=== PATIENT | female | born 1995 | race Caucasian/White ===

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

== ENCOUNTER → 2017-07-04 | Outpatient (CLI) | payer OTHER ==
--- NOTE | 2017-07-04 08:22 | CT ---
EXAMINATION TYPE: CT brain wo con DATE OF EXAM: 07/04/2017 COMPARISON: Previous study dated 11/07/2015. HISTORY: Patient complains of increased frequency of migraine headaches. Patient has a history of mi graines. CT DLP: 975 mGycm Automated exposure control for dose reduction was used. FINDINGS: Central structures are midline. There is no evidence of hydrocephalus. No acute focal lesio n, mass effect or midline shift is seen. I do not see evidence of intracranial blood. Visualized portions of the paranasal sinuses and mastoids are clear. IMPRESSION: NORMAL CT SCAN OF THE BRAIN.
== END | disposition home or self-care (01) ==
LOC: RADCTMAIN 07:55
PROVIDERS: ATTEND Family Medicine
DX: R51 Headache (principal)
CPT/HCPCS: 70450

== ENCOUNTER → 2017-12-13 | Outpatient (CLI) | payer OTHER ==
--- NOTE | 2017-12-14 09:10 | XR ---
EXAMINATION TYPE: XR humerus LT DATE OF EXAM: 12/13/2017 COMPARISON: NONE HISTORY: Possible foreign body TECHNIQUE: 2 views submitted. FINDINGS: The osseous structures are intact and the joint spaces are preserved. There are 2 separate radiopaqu e density seen along the medial margin of the proximal and distal humerus which may represent foreign body. IMPRESSION: 1. Linear radiopaque densities along the medial margin of the mid diaphysis and distal diaphysis of t he humerus may represent the possible foreign body. Correlate clinically.
== END | disposition home or self-care (01) ==
LOC: RADXRMAIN 16:23
PROVIDERS: ATTEND Midwife
DX: Z30.40 Encounter for surveillance of contraceptives, unspecified (principal); M85.822 Other specified disorders of bone density and structure, left upper arm

== ENCOUNTER 2017-12-24 20:16 | Emergency (ER) | payer OTHER ==
[2017-12-24 20:21] VITALS: BP 125/73; PULSE 105; RESP 20; TEMP 98.2
[2017-12-24] MEDS ORDERED: KETOROLAC 60 MG/2 ML VIAL IM STA (20:27)
[2017-12-24] MEDS ORDERED: ORPHENADRINE 30 MG/ML 2 ML VIAL IM STA (20:27)
--- NOTE | 2017-12-24 20:31 | ED ---
General Adult HPI - General Chief complaint: Back Pain/Injury Stated complaint: Back Pain Time Seen by Provider: 12/24/17 20:22 Source: patient, RN notes reviewed Mode of arrival: wheelchair Limitations: no limitations - History of Present Illness Initial comments: 22 yo female presents to the ER with cc of left sided back pain. Patient states she's had this on and off for the last 3 months. She bent over doing laundry seemed to flare up. Patient states she steps onto her left or right foot a little should the pain up the left side. Patient denies any loss of bowel or bladder function any saddle anesthesia. Patient denies any falls traumas or injuries to increase her discomfort. She denies the use the redness with her discomfort. She was concerned due to her continued pain so she thought that she should be seen. Patient denies any recent fever, chills, shortness of breath, chest pain, abdominal pain, nausea vomiting, numbness or tingling, dysuria or hematuria, constipation or diarrhea, headaches or visual changes, or any other current symptoms. - Related Data Home Medications Medication Instructions Recorded Confirmed Etonogestrel [Nexplanon ( 68 mg SQ [id number] 07/04/15 12/24/17 control implant)] Previous Rx's Medication Instructions Recorded Orphenadrine [Norflex] 100 mg PO Q12H #10 tablet.er 12/24/17 predniSONE 50 mg PO DAILY #5 tab 12/24/17 Allergies Allergy/AdvReac Type Severity Reaction Status Date / Time No Known Allergies Allergy Verified 12/24/17 20:28 Review of Systems ROS Statement: Those systems with pertinent positive or pertinent negative responses have been documented in the HPI. ROS Other: All systems not noted in ROS Statement are negative. Past Medical History Past Medical History: Asthma History of Any Multi-Drug Resistant Organisms: None Reported Past Surgical History: No Surgical Hx Reported Past Psychological History: No Psychological Hx Reported Smoking Status: Never smoker Past Alcohol Use History: Occasional Past Drug Use History: None Reported General Exam Limitations: no limitations General appearance: alert, in no apparent distress ENT exam: Present: normal exam, mucous membranes moist Neck exam: Present: normal inspection. Absent: tenderness, meningismus, lymphadenopathy Respiratory exam: Present: normal lung sounds bilaterally. Absent: respiratory distress, wheezes, rales, rhonchi, stridor Cardiovascular Exam: Present: regular rate, normal rhythm, normal heart sounds. Absent: systolic murmur, diastolic murmur, rubs, gallop, clicks Back exam: Present: normal inspection, full ROM, tenderness (To the left paraspinal region), rash noted, other (Positive straight leg raise on the left) . Absent: muscle spasm Neurological exam: Present: alert, oriented X3 Psychiatric exam: Present: normal affect, normal mood Skin exam: Present: warm, dry, intact, normal color. Absent: rash Course Vital Signs 12/24/17 20:17 Temperature 98.2 F Pulse Rate 105 H Respiratory 20 Rate Blood Pressure 125/73 O2 Sat by Pulse 100 Oximetry Medical Decision Making - Medical Decision Making 22-year-old female presents emergency department with a chief complaint of left sided sciatica. At this time the patient x-ray is reviewed. At this time we discussed most likely a sciatica type pain. We discussed that we will start her on steroids for home. Muscle relaxer. We did discuss using Motrin Tylenol for pain control. We did discuss follow-up with her doctor and all questions. Patient stated that she understood. All questions have been answered. She will be discharged home. - Radiology Data Radiology results: report reviewed, image reviewed Disposition Clinical Impression: Sciatica, left side Disposition: HOME SELF-CARE Condition: Stable Instructions: Sciatica (ED), Lower Back Exercises (ED) Additional Instructions: Please use medication as discussed. Please follow up with family doctor if symptoms have not improved over the next two days. Please return to the emergency room if your symptoms increase or worsen or for any other concerns. Prescriptions: Orphenadrine [Norflex] 100 mg PO Q12H #10 tablet.er predniSONE 50 mg PO DAILY #5 tab Referrals: Vadim Sidhu MD [Primary Care Provider] - 1-2 days Time of Disposition: 20:58
--- NOTE | 2017-12-24 20:56 | XR ---
EXAMINATION TYPE: XR lumbar spine 2 or 3V DATE OF EXAM: 12/24/2017 COMPARISON: NONE HISTORY: Back pain TECHNIQUE: 3 views FINDINGS: Lumbar vertebra have fairly normal spacing and alignment. Posterior elements are intact. Sa croiliac joints appear normal. There is no compression fracture. IMPRESSION: Negative lumbar spine exam.
== END 2017-12-24 21:04 | disposition home or self-care (01) ==
LOC: EC 20:16
DX: M54.32 Sciatica, left side (principal); Z79.3 Long term (current) use of hormonal contraceptives
CPT/HCPCS: 72100; 99283; 96372 ×2; J2360; J1885

== ENCOUNTER 2018-06-26 20:40 | Emergency (ER) | payer OTHER ==
[2018-06-26 21:04] VITALS: BP 128/68; PULSE 73; RESP 16; TEMP 97.3
--- NOTE | 2018-06-26 21:20 | ED ---
ENT HPI - General Chief complaint: ENT Stated complaint: Throat Pain Time Seen by Provider: 06/26/18 21:08 Source: patient, RN notes reviewed Mode of arrival: ambulatory Limitations: no limitations - History of Present Illness Initial comments: This is a 22-year-old female who presents to the emergency department with chief complaint of sore throat. Patient reports a left-sided sore throat since Monday. Patient states that the pain has progressed today. She also reports left ear pain. Denies cough or runny nose. Denies fevers or chills. Denies chest pain or shortness of breath, abdominal pain, nausea or vomiting, body aches. - Related Data Home Medications Medication Instructions Recorded Confirmed Etonogestrel [Nexplanon ( 68 mg SQ [id number] 07/04/15 12/24/17 control implant)] Previous Rx's Medication Instructions Recorded Orphenadrine [Norflex] 100 mg PO Q12H #10 tablet.er 12/24/17 predniSONE 50 mg PO DAILY #5 tab 12/24/17 Allergies Allergy/AdvReac Type Severity Reaction Status Date / Time No Known Allergies Allergy Verified 12/24/17 20:28 Review of Systems ROS Statement: Those systems with pertinent positive or pertinent negative responses have been documented in the HPI. ROS Other: All systems not noted in ROS Statement are negative. Past Medical History Past Medical History: Asthma History of Any Multi-Drug Resistant Organisms: None Reported Past Surgical History: No Surgical Hx Reported Additional Past Surgical History / Comment(s): Nexplan removal Past Psychological History: No Psychological Hx Reported Smoking Status: Never smoker Past Alcohol Use History: Occasional Past Drug Use History: None Reported General Exam - General Exam Comments Initial Comments: General: Awake and alert, well-developed; in no apparent distress. HEENT: Head atraumatic, normocephalic. Pupils are equal, round and reactive to light. Extraocular movements intact. Oropharynx left-sided erythema of the palatoglossal arch with plaque-like ulcers. No tonsillar enlargement or exudates. Neck: Supple. Normal ROM. Cardiovascular: Regular rate and rhythm. No murmurs, rubs or gallops. Chest symmetrical. Respiratory: Lungs clear to auscultation bilaterally. No wheezes, rales or rhonchi. Normal respiratory effort with no use of accessory muscles. Musculoskeletal: Normal ROM, no tenderness bilateral upper and lower extremities. Ambulating normally. Skin: [place], warm and dry without rashes or lesions. Neurological: Alert and oriented x3. CN II-XII grossly intact. Speech is fluent and answers are appropriate. No focal neuro deficits. Psychiatric: Normal mood and affect. No overt signs of depression or anxiety noted. Limitations: no limitations Course Vital Signs 06/26/18 20:59 Temperature 97.3 F L Pulse Rate 73 Respiratory 16 Rate Blood Pressure 128/68 O2 Sat by Pulse 100 Oximetry Medical Decision Making - Medical Decision Making This is a 22-year-old female who presents to the emergency department with chief complaint of sore throat. Patient reports only pain to the left side of her throat. On physical examination, there is erythema and plaque-like ulcers noted to the left side patient's oropharynx. Rapid strep is negative. Patient denies fevers or chills. Likely suffering from a viral pharyngitis. Recommended Tylenol and Motrin for pain relief. Patient's vital signs are stable and she is in no acute distress. She will be discharged home at this time. She is in agreement and voices understanding. All questions were answered. - Lab Data Lab Results 06/26/18 Range/Units 21:16 Group A Strep Rapid Negative (Negative) Disposition Clinical Impression: Acute viral pharyngitis Disposition: HOME SELF-CARE Condition: Good Instructions: Pharyngitis (ED) Additional Instructions: Please follow up with primary care provider within 1-2 days. Return to emergency department if symptoms should worsen or any concerns arise. Is patient prescribed a controlled substance at d/c from ED?: No Referrals: Alannah Rodriguez MD [Primary Care Provider] - 1-2 days Time of Disposition: 21:37
== END 2018-06-26 21:41 | disposition home or self-care (01) ==
LOC: EC 20:40
DX: J02.9 Acute pharyngitis, unspecified (principal); H92.02 Otalgia, left ear; Z79.3 Long term (current) use of hormonal contraceptives
CPT/HCPCS: 87081; 87430; 99283

== ENCOUNTER 2019-10-24 01:09 | Emergency (ER) | payer OTHER ==
[2019-10-24 01:20] VITALS: RESP 18; TEMP 98
[2019-10-24] MEDS ORDERED: ONDANSETRON ODT 4 MG TAB PO STA (01:36)
--- NOTE | 2019-10-24 01:44 | ED ---
Alcohol HPI - General Chief Complaint: Alcohol Stated Complaint: ETOH,Anxiety Time Seen by Provider: 10/24/19 01:28 Source: patient Mode of arrival: ambulatory - History of Present Illness Initial Comments: Patient is a 24-year-old female presenting to the emergency department with her mother for alcohol intoxication. Patient had been out drinking for her birthday today and then became sad because her cousin past week a few months ago who also shares the same birthday. Patient began crying and grandmother took her to the ER. In triage, patient started vomiting. Mother is not sure why grandma took her to the ER. Patient denies having homicidal or suicidal thoughts. Patient denies pain anywhere. Patient's only complaint is nausea and vomiting secondary to alcohol. Patient has no pertinent past medical history. There are no other complaints at this time. - Related Data Home Medications Medication Instructions Recorded Confirmed Etonogestrel [Nexplanon ( 68 mg SQ [id number] 07/04/15 12/24/17 control implant)] Previous Rx's Medication Instructions Recorded Orphenadrine [Norflex] 100 mg PO Q12H #10 tablet.er 12/24/17 predniSONE 50 mg PO DAILY #5 tab 12/24/17 Allergies Allergy/AdvReac Type Severity Reaction Status Date / Time No Known Allergies Allergy Verified 10/24/19 01:20 Review of Systems ROS Statement: Those systems with pertinent positive or pertinent negative responses have been documented in the HPI. ROS Other: All systems not noted in ROS Statement are negative. Past Medical History Past Medical History: Asthma History of Any Multi-Drug Resistant Organisms: None Reported Past Surgical History: No Surgical Hx Reported Additional Past Surgical History / Comment(s): Nexplan removal Past Psychological History: No Psychological Hx Reported Smoking Status: Never smoker Past Alcohol Use History: Occasional Past Drug Use History: None Reported General Exam - General Exam Comments Initial Comments: GENERAL: Patient appears intoxicated, in no acute distress. Patient is nauseous and vomiting. HEAD: Atraumatic, normocephalic. EYES: Pupils equal round and reactive to light, extraocular movements intact, sclera anicteric, conjunctiva are normal. ENT: TMs normal, nares patent, oropharynx clear without exudates. Moist mucous membranes. NECK: Normal range of motion, supple without lymphadenopathy or JVD. LUNGS: Breath sounds clear to auscultation bilaterally and equal. No wheezes rales or rhonchi. HEART: Regular rate and rhythm without murmurs, rubs or gallops. ABDOMEN: Soft, nontender, normoactive bowel sounds. No guarding, no rebound. No masses appreciated. : Deferred EXTREMITIES: Normal range of motion, no pitting or edema. No clubbing or cyanosis. PSYCH: Intoxicated, sad. SKIN: Warm, Dry, normal turgor, no rashes or lesions noted. Course Vital Signs 10/24/19 10/24/19 01:17 01:46 Temperature 98.0 F Pulse Rate 137 H 85 Respiratory 18 18 Rate Blood Pressure 122/81 109/66 O2 Sat by Pulse 95 96 Oximetry Medical Decision Making - Medical Decision Making Patient is a 24-year-old female presenting with acute alcohol intoxication as well as nauseous GI and vomiting. Patient denies suicidal or homicidal thoughts. Exam is unremarkable other than vomiting. Vitals are stable. Patient is here with a sober mother and mother will drive patient home. Patient was given Zofran for her nausea. Patient stable for discharge at this time. Return parameters were discussed with the patient and the mother and they both verbalized understanding. Case discussed with Dr. Moore. Disposition Clinical Impression: Alcoholic intoxication, Nausea & vomiting Disposition: HOME SELF-CARE Condition: Stable Instructions (If sedation given, give patient instructions): Alcohol Intoxication (ED) Additional Instructions: Please return to the Emergency Department if symptoms worsen or any other concern. Increase fluid intake Is patient prescribed a controlled substance at d/c from ED?: No Referrals: Alannah Rodriguez MD [Primary Care Provider] - 1-2 days
[2019-10-24 01:47] VITALS: BP 109/66; PULSE 85
== END 2019-10-24 01:57 | disposition home or self-care (01) ==
LOC: EC 01:09
DX: F10.129 Alcohol abuse with intoxication, unspecified (principal)
CPT/HCPCS: 99283

== ENCOUNTER 2021-07-02 01:58 | Emergency (ER) | payer OTHER ==
[2021-07-02 02:10] VITALS: BP 110/68; PULSE 88; RESP 22; TEMP 98.5
[2021-07-02] MEDS ORDERED: MAG HYDROX/AL HYDROX/SIMETH 30 ML, HYOSCYAMINE ELIXIR 10 ML, LIDOCAINE VISCOUS 2% 10 ML PO STA ×3 (03:08)
--- NOTE | 2021-07-02 03:14 | ED ---
Abdominal Pain HPI - General Chief Complaint: Abdominal Pain Stated Complaint: Abd Pain Time Seen by Provider: 07/02/21 02:56 Source: patient, family Mode of arrival: ambulatory Limitations: no limitations - History of Present Illness Initial Comments: This patient is 25-year-old woman with history of and May, who presents with upper abdominal pain. She has been having approximately weekly episodes of upper abdominal pain going back for about a month. She states she'll have hours of aching pain that sometimes resolves if she goes to sleep. The pains always come on at night. Patient states she had eaten a steak and potatoes this evening (6pm). Pain started around midnight. MD Complaint: abdominal pain -: hour(s) Location: RUQ, epigastric Radiation: back Severity: severe Quality: aching Consistency: constant Improves With: nothing Worsens With: nothing Associated Symptoms: nausea, vomiting - Related Data LMP (females 10-50): 3 weeks Home Medications Medication Instructions Recorded Confirmed Etonogestrel [Nexplanon ( 68 mg SQ [id number] 07/04/15 12/24/17 control implant)] Previous Rx's Medication Instructions Recorded Orphenadrine [Norflex] 100 mg PO Q12H #10 tablet.er 12/24/17 predniSONE 50 mg PO DAILY #5 tab 12/24/17 Dicyclomine [Bentyl] 20 mg PO QID #15 tablet 07/02/21 Famotidine [Pepcid] 20 mg PO BID #14 tablet 07/02/21 Allergies Allergy/AdvReac Type Severity Reaction Status Date / Time No Known Allergies Allergy Verified 07/02/21 02:09 Review of Systems ROS Statement: Those systems with pertinent positive or pertinent negative responses have been documented in the HPI. ROS Other: All systems not noted in ROS Statement are negative. Constitutional: Denies: fever, chills Respiratory: Denies: cough, dyspnea Cardiovascular: Denies: chest pain, palpitations Gastrointestinal: Reports: abdominal pain, nausea. Denies: vomiting, diarrhea, constipation, hematemesis, melena Genitourinary: Denies: dysuria, frequency, hematuria, abnormal menses Musculoskeletal: Denies: back pain Skin: Denies: rash Neurological: Denies: headache, weakness, numbness Past Medical History Past Medical History: Asthma History of Any Multi-Drug Resistant Organisms: None Reported Past Surgical History: No Surgical Hx Reported Additional Past Surgical History / Comment(s): Nexplan removal Past Psychological History: No Psychological Hx Reported Smoking Status: Never smoker Past Alcohol Use History: Occasional Past Drug Use History: None Reported General Exam Limitations: no limitations General appearance: alert, in no apparent distress Head exam: Present: atraumatic, normocephalic Eye exam: Present: normal appearance. Absent: scleral icterus, conjunctival injection Respiratory exam: Present: normal lung sounds bilaterally. Absent: respiratory distress, wheezes, rales, rhonchi, stridor Cardiovascular Exam: Present: regular rate, normal rhythm, normal heart sounds. Absent: systolic murmur, diastolic murmur, rubs, gallop GI/Abdominal exam: Present: soft, tenderness, normal bowel sounds. Absent: distended, guarding, rebound, rigid, mass, pulsatile mass, hernia Extremities exam: Present: normal inspection, normal capillary refill. Absent: pedal edema, calf tenderness Back exam: Present: normal inspection. Absent: CVA tenderness (R), CVA tenderness (L) Neurological exam: Present: alert Skin exam: Present: warm, dry, intact, normal color. Absent: rash Course Vital Signs 07/02/21 02:05 Temperature 98.5 F Pulse Rate 88 Respiratory 22 Rate Blood Pressure 110/68 O2 Sat by Pulse 99 Oximetry Medical Decision Making - Medical Decision Making This patient is 25-year-old woman with intermittent abdominal pains. She does have some mild right upper quadrant tenderness on arrival. Discussed that had wanted to have an ultrasound of right upper quadrant, but that ultrasound is not arrive until 7 AM. Offered to keep patient here until ultrasound arrives but she would like to go one schedule the ultrasound as outpatient. She is feeling much better at present. Discussed appropriate further care and follow-up as well as return parameters. - Lab Data Result diagrams: 07/02/21 03:19 07/02/21 03:19 Lab Results 07/02/21 07/02/21 07/02/21 Range/Units 03:19 03:19 03:19 WBC 11.1 H (3.8-10.6) k/uL RBC 4.84 (3.80-5.40) m/uL Hgb 13.2 (11.4-16.0) gm/dL Hct 39.6 (34.0-46.0) % MCV 81.9 (80.0-100.0) fL MCH 27.3 (25.0-35.0) pg MCHC 33.3 (31.0-37.0) g/dL RDW 13.3 (11.5-15.5) % Plt Count 351 (150-450) k/uL MPV 7.8 Neutrophils % 78 % Lymphocytes % 16 % Monocytes % 4 % Eosinophils % 1 % Basophils % 0 % Neutrophils # 8.7 H (1.3-7.7) k/uL Lymphocytes # 1.7 (1.0-4.8) k/uL Monocytes # 0.5 (0-1.0) k/uL Eosinophils # 0.1 (0-0.7) k/uL Basophils # 0.0 (0-0.2) k/uL Sodium (137-145) mmol/L Potassium (3.5-5.1) mmol/L Chloride (98-107) mmol/L Carbon Dioxide (22-30) mmol/L Anion Gap mmol/L BUN (7-17) mg/dL Creatinine (0.52-1.04) mg/dL Est GFR (CKD-EPI)AfAm (>60 ml/min/1.73 sqM) Est GFR (CKD-EPI)NonAf (>60 ml/min/1.73 sqM) Glucose (74-99) mg/dL Calcium (8.4-10.2) mg/dL Total Bilirubin (0.2-1.3) mg/dL AST (14-36) U/L ALT (4-34) U/L Alkaline Phosphatase (38-126) U/L Total Protein (6.3-8.2) g/dL Albumin (3.5-5.0) g/dL Amylase (30-110) U/L Lipase (23-300) U/L Urine Color Yellow Urine Appearance Clear (Clear) Urine pH 6.5 (5.0-8.0) Ur Specific [place] 1.027 (1.001-1.035) Urine Protein Trace H (Negative) Urine Glucose (UA) Negative (Negative) Urine Ketones Negative (Negative) Urine Blood Negative (Negative) Urine Nitrite Negative (Negative) Urine Bilirubin Negative (Negative) Urine Urobilinogen <2.0 (<2.0) mg/dL Ur Leukocyte Esterase Small H (Negative) Urine RBC <1 (0-5) /hpf Urine WBC 4 (0-5) /hpf Ur Squamous Epith Cells 3 (0-4) /hpf Amorphous Sediment Rare H (None) /hpf Urine Mucus Rare H (None) /hpf Urine HCG, Qual Not Detected (Not Detectd) 07/02/21 Range/Units 03:19 WBC (3.8-10.6) k/uL RBC (3.80-5.40) m/uL Hgb (11.4-16.0) gm/dL Hct (34.0-46.0) % MCV (80.0-100.0) fL MCH (25.0-35.0) pg MCHC (31.0-37.0) g/dL RDW (11.5-15.5) % Plt Count (150-450) k/uL MPV Neutrophils % % Lymphocytes % % Monocytes % % Eosinophils % % Basophils % % Neutrophils # (1.3-7.7) k/uL Lymphocytes # (1.0-4.8) k/uL Monocytes # (0-1.0) k/uL Eosinophils # (0-0.7) k/uL Basophils # (0-0.2) k/uL Sodium 139 (137-145) mmol/L Potassium 3.8 (3.5-5.1) mmol/L Chloride 105 (98-107) mmol/L Carbon Dioxide 23 (22-30) mmol/L Anion Gap 11 mmol/L BUN 16 (7-17) mg/dL Creatinine 0.78 (0.52-1.04) mg/dL Est GFR (CKD-EPI)AfAm >90 (>60 ml/min/1.73 sqM) Est GFR (CKD-EPI)NonAf >90 (>60 ml/min/1.73 sqM) Glucose 110 H (74-99) mg/dL Calcium 9.7 (8.4-10.2) mg/dL Total Bilirubin 0.6 (0.2-1.3) mg/dL AST 48 H (14-36) U/L ALT 36 H (4-34) U/L Alkaline Phosphatase 77 (38-126) U/L Total Protein 8.2 (6.3-8.2) g/dL Albumin 4.6 (3.5-5.0) g/dL Amylase 70 (30-110) U/L Lipase 135 (23-300) U/L Urine Color Urine Appearance (Clear) Urine pH (5.0-8.0) Ur Specific [place] (1.001-1.035) Urine Protein (Negative) Urine Glucose (UA) (Negative) Urine Ketones (Negative) Urine Blood (Negative) Urine Nitrite (Negative) Urine Bilirubin (Negative) Urine Urobilinogen (<2.0) mg/dL Ur Leukocyte Esterase (Negative) Urine RBC (0-5) /hpf Urine WBC (0-5) /hpf Ur Squamous Epith Cells (0-4) /hpf Amorphous Sediment (None) /hpf Urine Mucus (None) /hpf Urine HCG, Qual (Not Detectd) Disposition Clinical Impression: Abdominal pain Disposition: HOME SELF-CARE Condition: Good Instructions (If sedation given, give patient instructions): Abdominal Pain (ED) Prescriptions: Dicyclomine [Bentyl] 20 mg PO QID #15 tablet Famotidine [Pepcid] 20 mg PO BID #14 tablet Is patient prescribed a controlled substance at d/c from ED?: No Referrals: Vadim Sidhu MD [Primary Care Provider] - 1-2 days
[2021-07-02 03:45] LABS: ALT 36 U/L (4-34); AST 48 U/L (14-36); African American GFR (CKD) >90 (>60 ml/min/1.73 sqM); Albumin 4.6 g/dL (3.5-5.0); Alkaline Phosphatase 77 U/L (38-126); Amylase 70 U/L (30-110); Anion Gap 11 mmol/L; Blood Urea Nitrogen 16 mg/dL (7-17); Calcium 9.7 mg/dL (8.4-10.2); Carbon Dioxide 23 mmol/L (22-30); Chloride 105 mmol/L (98-107); Glucose 110 mg/dL (74-99); Lipase 135 U/L (23-300); Non-African American GFR(CKD) >90 (>60 ml/min/1.73 sqM); Potassium 3.8 mmol/L (3.5-5.1); Sodium 139 mmol/L (137-145); Total Bilirubin 0.6 mg/dL (0.2-1.3); Total Protein 8.2 g/dL (6.3-8.2)
[2021-07-02 03:51] LABS: Amorphous Sediment,Urine Rare /hpf; Appearance,Urine Clear (Clear); Bilirubin,Urine Negative (Negative); Blood,Urine Negative (Negative); Color,Urine Yellow; Glucose,Urine (UA) Negative (Negative); Ketones,Urine Negative (Negative); Leukocyte Esterase,Urine Small (Negative); Mucus,Urine Rare /hpf; Nitrite,Urine Negative (Negative); PH, Urine 6.5 (5.0-8.0); Protein,Urine Trace (Negative); RBC,Urine <1 /hpf (0-5); Specific Gravity,Urine 1.027 (1.001-1.035); Squamous Epithelial Cell,Urine 3 /hpf (0-4); Urobilinogen,Urine <2.0 mg/dL (<2.0); WBC,Urine 4 /hpf (0-5)
[2021-07-02 03:54] LABS: Basophils % (A) 0 %; Eosinophils # (A) 0.1 k/uL (0-0.7); Eosinophils % (A) 1 %; HCT 39.6 % (34.0-46.0); HGB 13.2 gm/dL (11.4-16.0); Lymphocytes # (A) 1.7 k/uL (1.0-4.8); Lymphocytes % (A) 16 %; MCH 27.3 pg (25.0-35.0); MCHC 33.3 g/dL (31.0-37.0); MCV 81.9 fL (80.0-100.0); Mean Platelet Volume 7.8; Monocytes # (A) 0.5 k/uL (0-1.0); Monocytes % (A) 4 %; Neutrophils # (A) 8.7 k/uL (1.3-7.7); Neutrophils % (A) 78 %; Platelet Count 351 k/uL (150-450); RBC 4.84 m/uL (3.80-5.40); RDW 13.3 % (11.5-15.5); WBC 11.1 k/uL (3.8-10.6)
== END 2021-07-02 04:33 | disposition home or self-care (01) ==
LOC: EC 01:58
DX: R10.11 Right upper quadrant pain (principal); R10.13 Epigastric pain; R11.0 Nausea; J45.909 Unspecified asthma, uncomplicated
CPT/HCPCS: 36415; 80053; 81001; 81025; 82150; 83690; 85025; 99284

== ENCOUNTER → 2021-08-06 | Outpatient (CLI) | payer OTHER ==
--- NOTE | 2021-08-06 10:35 | US ---
EXAMINATION TYPE: US abdomen limited DATE OF EXAM: 08/06/2021 COMPARISON: NONE CLINICAL HISTORY: R10.11 right upper quad pain. EXAM MEASUREMENTS: Liver Length: 13.8 cm Gallbladder Wall: 0.2 cm CBD: 0.5 cm Right Kidney: 10.1 x 4.1 x 5.7 cm Pancreas: visualized portions wnl Liver: wnl Gallbladder: several small stones with shadowing Evidence for sonographic Ty's sign: Yes CBD: wnl Right Kidney: No hydronephrosis or masses seen IMPRESSION: 1. Cholelithiasis. There is a sonographic Ty's sign. Correlate for acute cholecystitis.
== END | disposition home or self-care (01) ==
LOC: RADUSWWP 09:38
PROVIDERS: ATTEND Emergency Medicine
DX: K80.20 Calculus of gallbladder without cholecystitis without obstruction (principal)
CPT/HCPCS: 76705

== ENCOUNTER 2021-09-27 12:29 | Observation (INO) | payer OTHER ==
[2021-09-27] MEDS ORDERED: SODIUM CHLORIDE 0.9% 1,000 ML IV STA (16:24)
[2021-09-27 16:59] LABS: Basophils % (A) 0 %; Eosinophils # (A) 0.1 k/uL (0-0.7); Eosinophils % (A) 1 %; HCT 41.7 % (34.0-46.0); HGB 13.6 gm/dL (11.4-16.0); Lymphocytes # (A) 1.3 k/uL (1.0-4.8); Lymphocytes % (A) 17 %; MCH 26.3 pg (25.0-35.0); MCHC 32.5 g/dL (31.0-37.0); MCV 80.8 fL (80.0-100.0); Mean Platelet Volume 7.6; Monocytes # (A) 0.4 k/uL (0-1.0); Monocytes % (A) 5 %; Neutrophils % (A) 76 %; Platelet Count 331 k/uL (150-450); RBC 5.16 m/uL (3.80-5.40); RDW 13.4 % (11.5-15.5)
[2021-09-27 17:11] LABS: ALT 139 U/L (4-34); AST 180 U/L (14-36); African American GFR (CKD) >90 (>60 ml/min/1.73 sqM); Albumin 4.5 g/dL (3.5-5.0); Alkaline Phosphatase 95 U/L (38-126); Anion Gap 9 mmol/L; Blood Urea Nitrogen 13 mg/dL (7-17); Calcium 9.7 mg/dL (8.4-10.2); Carbon Dioxide 26 mmol/L (22-30); Chloride 102 mmol/L (98-107); Glucose 87 mg/dL (74-99); Lipase 189 U/L (23-300); Non-African American GFR(CKD) >90 (>60 ml/min/1.73 sqM); Sodium 137 mmol/L (137-145); Total Protein 8.6 g/dL (6.3-8.2)
--- NOTE | 2021-09-27 17:45 | US ---
EXAMINATION TYPE: US gallbladder DATE OF EXAM: 09/27/2021 COMPARISON: US 08/06/2021 CLINICAL HISTORY: pain, known cholelithiasis. EXAM MEASUREMENTS: Liver Length: 13.2 cm Gallbladder Wall: 0.2 cm CBD: 0.8 cm Right Kidney: 10.9 x 4.0 x 5.6 cm Pancreas: visualized portions wnl Liver: wnl Gallbladder: multiple mobile stones with shadowing Evidence for sonographic Ty's sign: Yes CBD: measures 0.8 cm Right Kidney: No hydronephrosis or masses seen IMPRESSION: Multiple gallstones. No dilated intrahepatic ducts. Large common bile duct consistent wit h some degree of gallbladder dysfunction.
[2021-09-27 18:20] LABS: Appearance,Urine Cloudy (Clear); Bilirubin,Urine 1+ (Negative); Blood,Urine Negative (Negative); Color,Urine Yellow; Glucose,Urine (UA) Negative (Negative); Ketones,Urine 2+ (Negative); Leukocyte Esterase,Urine Trace (Negative); Mucus,Urine Moderate /hpf; Nitrite,Urine Negative (Negative); PH, Urine 7.5 (5.0-8.0); Protein,Urine 1+ (Negative); RBC,Urine 2 /hpf (0-5); Specific Gravity,Urine 1.028 (1.001-1.035); Squamous Epithelial Cell,Urine 3 /hpf (0-4); Urobilinogen,Urine <2.0 mg/dL (<2.0); WBC,Urine 5 /hpf (0-5)
[2021-09-27] MEDS ORDERED: NALOXONE 0.4 MG/ML 1 ML VIAL IV PRN (18:30)
[2021-09-27] MEDS ORDERED: ONDANSETRON 4 MG/2 ML VIAL IVP PRN (18:30)
[2021-09-27] MEDS ORDERED: HYDROmorphone 0.5 MG/0.5 ML SYRINGE IVP PRN (18:30)
[2021-09-27] MEDS ORDERED: SODIUM CHLORIDE 0.9% 1,000 ML IV SCH (18:30)
[2021-09-27] MEDS ORDERED: HYDROcodone/APAP 5-325MG 1 EACH TAB PO PRN (18:30)
--- NOTE | 2021-09-27 18:30 | ED ---
Abdominal Pain HPI - General Chief Complaint: Abdominal Pain Stated Complaint: Gall Bladder Problems Time Seen by Provider: 09/27/21 16:18 Source: patient, RN notes reviewed Mode of arrival: ambulatory Limitations: no limitations - History of Present Illness Initial Comments: This a 25-year-old female presents emergency from chief complaint of 24 hours abdominal pain. Patient has known gallbladder she she is scheduled see a surgeon outpatient but has not had an appointment yet. She states she did 24 hours the pain cannot tolerate any longer. She states the pain started after eating some peanut butter yesterday morning. She states pain severe right quadrant she's had some increase in nausea. Patient had prior ultrasound which showed evidence of gallstones. MD Complaint: abdominal pain - Related Data Home Medications Medication Instructions Recorded Confirmed Etonogestrel [Nexplanon ( 68 mg SQ [id number] 07/04/15 12/24/17 control implant)] Previous Rx's Medication Instructions Recorded Orphenadrine [Norflex] 100 mg PO Q12H #10 tablet.er 12/24/17 predniSONE 50 mg PO DAILY #5 tab 12/24/17 Dicyclomine [Bentyl] 20 mg PO QID #15 tablet 07/02/21 Famotidine [Pepcid] 20 mg PO BID #14 tablet 07/02/21 Allergies Allergy/AdvReac Type Severity Reaction Status Date / Time No Known Allergies Allergy Verified 07/02/21 02:09 Review of Systems ROS Statement: Those systems with pertinent positive or pertinent negative responses have been documented in the HPI. ROS Other: All systems not noted in ROS Statement are negative. Past Medical History Past Medical History: Asthma History of Any Multi-Drug Resistant Organisms: None Reported Past Surgical History: No Surgical Hx Reported Additional Past Surgical History / Comment(s): Nexplan removal Past Psychological History: No Psychological Hx Reported Smoking Status: Never smoker Past Alcohol Use History: Occasional Past Drug Use History: None Reported General Exam Limitations: no limitations General appearance: alert, in no apparent distress Head exam: Present: atraumatic, normocephalic, normal inspection Eye exam: Present: normal appearance, PERRL, EOMI. Absent: scleral icterus, conjunctival injection, periorbital swelling ENT exam: Present: normal exam, mucous membranes moist Neck exam: Present: normal inspection. Absent: tenderness, meningismus, lymphadenopathy Respiratory exam: Present: normal lung sounds bilaterally. Absent: respiratory distress, wheezes, rales, rhonchi, stridor Cardiovascular Exam: Present: regular rate, normal rhythm, normal heart sounds. Absent: systolic murmur, diastolic murmur, rubs, gallop, clicks GI/Abdominal exam: Present: soft, tenderness, normal bowel sounds. Absent: distended, guarding, rebound, rigid Course Vital Signs 09/27/21 09/27/21 16:07 17:13 Temperature 98.3 F Pulse Rate 82 88 Respiratory 18 18 Rate Blood Pressure 112/76 118/82 O2 Sat by Pulse 100 95 Oximetry Medical Decision Making - Medical Decision Making Patient has evidence of cholelithiasis, transaminitis, increasing, and bile duct. Patient's case discussed with Dr. moa who accepts admission will reevaluate in the morning. - Lab Data Result diagrams: 09/27/21 16:45 09/27/21 16:45 Lab Results 09/27/21 09/27/21 09/27/21 Range/Units 16:45 16:45 17:52 WBC 8.0 (3.8-10.6) k/uL RBC 5.16 (3.80-5.40) m/uL Hgb 13.6 (11.4-16.0) gm/dL Hct 41.7 (34.0-46.0) % MCV 80.8 (80.0-100.0) fL MCH 26.3 (25.0-35.0) pg MCHC 32.5 (31.0-37.0) g/dL RDW 13.4 (11.5-15.5) % Plt Count 331 (150-450) k/uL MPV 7.6 Neutrophils % 76 % Lymphocytes % 17 % Monocytes % 5 % Eosinophils % 1 % Basophils % 0 % Neutrophils # 6.0 (1.3-7.7) k/uL Lymphocytes # 1.3 (1.0-4.8) k/uL Monocytes # 0.4 (0-1.0) k/uL Eosinophils # 0.1 (0-0.7) k/uL Basophils # 0.0 (0-0.2) k/uL Sodium 137 (137-145) mmol/L Potassium 4.0 (3.5-5.1) mmol/L Chloride 102 (98-107) mmol/L Carbon Dioxide 26 (22-30) mmol/L Anion Gap 9 mmol/L BUN 13 (7-17) mg/dL Creatinine 0.62 (0.52-1.04) mg/dL Est GFR (CKD-EPI)AfAm >90 (>60 ml/min/1.73 sqM) Est GFR (CKD-EPI)NonAf >90 (>60 ml/min/1.73 sqM) Glucose 87 (74-99) mg/dL Calcium 9.7 (8.4-10.2) mg/dL Total Bilirubin 1.0 (0.2-1.3) mg/dL AST 180 H (14-36) U/L ALT 139 H (4-34) U/L Alkaline Phosphatase 95 (38-126) U/L Total Protein 8.6 H (6.3-8.2) g/dL Albumin 4.5 (3.5-5.0) g/dL Lipase 189 (23-300) U/L Urine Color Yellow Urine Appearance Cloudy H (Clear) Urine pH 7.5 (5.0-8.0) Ur Specific [place] 1.028 (1.001-1.035) Urine Protein 1+ H (Negative) Urine Glucose (UA) Negative (Negative) Urine Ketones 2+ H (Negative) Urine Blood Negative (Negative) Urine Nitrite Negative (Negative) Urine Bilirubin 1+ H (Negative) Urine Urobilinogen <2.0 (<2.0) mg/dL Ur Leukocyte Esterase Trace H (Negative) Urine RBC 2 (0-5) /hpf Urine WBC 5 (0-5) /hpf Ur Squamous Epith Cells 3 (0-4) /hpf Urine Mucus Moderate H (None) /hpf Urine HCG, Qual (Not Detectd) 09/27/21 Range/Units 17:52 WBC (3.8-10.6) k/uL RBC (3.80-5.40) m/uL Hgb (11.4-16.0) gm/dL Hct (34.0-46.0) % MCV (80.0-100.0) fL MCH (25.0-35.0) pg MCHC (31.0-37.0) g/dL RDW (11.5-15.5) % Plt Count (150-450) k/uL MPV Neutrophils % % Lymphocytes % % Monocytes % % Eosinophils % % Basophils % % Neutrophils # (1.3-7.7) k/uL Lymphocytes # (1.0-4.8) k/uL Monocytes # (0-1.0) k/uL Eosinophils # (0-0.7) k/uL Basophils # (0-0.2) k/uL Sodium (137-145) mmol/L Potassium (3.5-5.1) mmol/L Chloride (98-107) mmol/L Carbon Dioxide (22-30) mmol/L Anion Gap mmol/L BUN (7-17) mg/dL Creatinine (0.52-1.04) mg/dL Est GFR (CKD-EPI)AfAm (>60 ml/min/1.73 sqM) Est GFR (CKD-EPI)NonAf (>60 ml/min/1.73 sqM) Glucose (74-99) mg/dL Calcium (8.4-10.2) mg/dL Total Bilirubin (0.2-1.3) mg/dL AST (14-36) U/L ALT (4-34) U/L Alkaline Phosphatase (38-126) U/L Total Protein (6.3-8.2) g/dL Albumin (3.5-5.0) g/dL Lipase (23-300) U/L Urine Color Urine Appearance (Clear) Urine pH (5.0-8.0) Ur Specific [place] (1.001-1.035) Urine Protein (Negative) Urine Glucose (UA) (Negative) Urine Ketones (Negative) Urine Blood (Negative) Urine Nitrite (Negative) Urine Bilirubin (Negative) Urine Urobilinogen (<2.0) mg/dL Ur Leukocyte Esterase (Negative) Urine RBC (0-5) /hpf Urine WBC (0-5) /hpf Ur Squamous Epith Cells (0-4) /hpf Urine Mucus (None) /hpf Urine HCG, Qual Not Detected (Not Detectd) Disposition Clinical Impression: Cholelithiasis with cholecystitis Disposition: ADMITTED IP TO THIS [facility] Condition: Fair Referrals: Vadim Sidhu MD [Primary Care Provider] - 1-2 days
--- NOTE | 2021-09-28 09:48 | P.GSHP ---
History of Present Illness H&P Date: 09/28/21 CHIEF COMPLAINT: Abdominal pain HISTORY OF PRESENT ILLNESS: This is a 25-year-old female who presented to the emergency room with complaints of right upper quadrant pain. She reports symptoms started 3 days ago. Her pain is worse after eating. Pain radiates up into the shoulder and back. She has been nauseous and having episodes of vomiting. She reports she had similar symptoms after delivering her baby in March. However the symptoms usually only lasted about 5-7 hours. This time the pain has lasted longer. She denies any fever chills or sweats. She had evidence of elevated LFTs on admission. Gallbladder ultrasound had shown gallstones and large common bile duct. PAST MEDICAL HISTORY: Asthma PAST SURGICAL HISTORY: None MEDICATIONS: See list. ALLERGIES: See list. SOCIAL HISTORY: No illicit drug use. REVIEW OF SYSTEMS: CONSTITUTIONAL: Denies fever or chills. HEENT: Denies blurred vision, vision changes, or eye pain. Denies hemoptysis CARDIOVASCULAR: Denies chest pain or pressure. RESPIRATORY: No shortness of breath. GASTROINTESTINAL: See HPI for pertinent findings HEMATOLOGIC: Denies bleeding disorders. GENITOURINARY: Denies any blood in urine or increased urinary frequency. SKIN: Denies pruitis. Denies rash. PHYSICAL EXAM: VITAL SIGNS: Reviewed GENERAL: Well-developed in no acute distress. HEENT: No sclera icterus. Extraocular movements grossly intact. Moist buccal mucosa. Head is atraumatic, normocephalic. No nasal drainage. ABDOMEN: Soft. Nondistended. Right upper quadrant tenderness NEUROLOGIC: Alert and oriented. Cranial nerves II through XII grossly intact. LABORATORY DATA: WBC is 8.0 Hgb 13.6 platelets 331 Sodium 137 potassium 4.0 BUN 13 creatinine 0.62 AST 180 ALT 139 total bili 1.0 Lipase 189 IMAGING: Gallbladder ultrasound shows multiple gallstones. No dilated intrahepatic ducts. Large common bile duct consistent with some degree of gallbladder dysfunction. ASSESSMENT: 1. Symptomatic cholelithiasis with cholecystitis 2. Choledocholithiasis PLAN: -Scheduled for laparoscopic cholecystectomy today with Dr. Moreira -Keep patient nothing by mouth -Continue IV fluids -Continue pain medication as needed Physician Butter Production Supervisor note has been reviewed by physician. Signing provider agrees with the documented findings, assessment, and plan of care. Past Medical History Past Medical History: Asthma History of Any Multi-Drug Resistant Organisms: None Reported Past Surgical History: No Surgical Hx Reported Additional Past Surgical History / Comment(s): Nexplan removal Past Anesthesia/Blood Transfusion Reactions: No Reported Reaction Past Psychological History: No Psychological Hx Reported Smoking Status: Vaper Past Alcohol Use History: Occasional Past Drug Use History: None Reported - Past Family History Mother Additional Family Medical History / Comment(s): CHOLECYSTITIS AND CHOLECYSTECTOMY Father Family Medical History: No Reported History Medications and Allergies Home Medications Medication Instructions Recorded Confirmed Type Etonogestrel [Nexplanon ( 68 mg SQ [id number] 07/04/15 09/27/21 History control implant)] Famotidine [Pepcid] 20 mg PO BID #14 tablet 07/02/21 09/27/21 Rx Dicyclomine [Bentyl] 10 mg PO TID 09/27/21 09/27/21 History Allergies Allergy/AdvReac Type Severity Reaction Status Date / Time No Known Allergies Allergy Verified 09/27/21 18:37 Surgical - Exam Vital Signs Temp Pulse Resp BP Pulse Ox 98.3 F 82 18 112/76 100 09/27/21 16:07 09/27/21 16:07 09/27/21 16:07 09/27/21 16:07 09/27/21 16:07 Results - Labs 09/27/21 16:45 09/27/21 16:45 Abnormal Lab Results - Last 24 Hours (Table) 09/27/21 09/27/21 Range/Units 16:45 17:52 AST 180 H (14-36) U/L ALT 139 H (4-34) U/L Total Protein 8.6 H (6.3-8.2) g/dL Urine Appearance Cloudy H (Clear) Urine Protein 1+ H (Negative) Urine Ketones 2+ H (Negative) Urine Bilirubin 1+ H (Negative) Ur Leukocyte Esterase Trace H (Negative) Urine Mucus Moderate H (None) /hpf Diabetes panel 09/27/21 Range/Units 16:45 Sodium 137 (137-145) mmol/L Potassium 4.0 (3.5-5.1) mmol/L Chloride 102 (98-107) mmol/L Carbon Dioxide 26 (22-30) mmol/L BUN 13 (7-17) mg/dL Creatinine 0.62 (0.52-1.04) mg/dL Glucose 87 (74-99) mg/dL Calcium 9.7 (8.4-10.2) mg/dL AST 180 H (14-36) U/L ALT 139 H (4-34) U/L Alkaline Phosphatase 95 (38-126) U/L Total Protein 8.6 H (6.3-8.2) g/dL Albumin 4.5 (3.5-5.0) g/dL Calcium panel 09/27/21 Range/Units 16:45 Calcium 9.7 (8.4-10.2) mg/dL Albumin 4.5 (3.5-5.0) g/dL Pituitary panel 09/27/21 Range/Units 16:45 Sodium 137 (137-145) mmol/L Potassium 4.0 (3.5-5.1) mmol/L Chloride 102 (98-107) mmol/L Carbon Dioxide 26 (22-30) mmol/L BUN 13 (7-17) mg/dL Creatinine 0.62 (0.52-1.04) mg/dL Glucose 87 (74-99) mg/dL Calcium 9.7 (8.4-10.2) mg/dL Adrenal panel 09/27/21 Range/Units 16:45 Sodium 137 (137-145) mmol/L Potassium 4.0 (3.5-5.1) mmol/L Chloride 102 (98-107) mmol/L Carbon Dioxide 26 (22-30) mmol/L BUN 13 (7-17) mg/dL Creatinine 0.62 (0.52-1.04) mg/dL Glucose 87 (74-99) mg/dL Calcium 9.7 (8.4-10.2) mg/dL Total Bilirubin 1.0 (0.2-1.3) mg/dL AST 180 H (14-36) U/L ALT 139 H (4-34) U/L Alkaline Phosphatase 95 (38-126) U/L Total Protein 8.6 H (6.3-8.2) g/dL Albumin 4.5 (3.5-5.0) g/dL
[2021-09-28] MEDS ORDERED: IV FLUID CONTINUATION 1,000 ML IV ONE (09:55)
[2021-09-28] MEDS ORDERED: DEXAMETHASONE SOD PHOSPHATE 4 MG/ML 1 ML VIAL IVP ONE (10:08)
[2021-09-28] MEDS ORDERED: SCOPOLAMINE 1.5MG/72HR PATCH TRANSDERM ONE (10:09)
[2021-09-28] MEDS ORDERED: HEPARIN SODIUM,PORCINE/PF 5,000 UNIT/0.5 ML SYRINGE SQ ONE (10:31)
[2021-09-28] MEDS ORDERED: PROPOFOL 10 MG/ML 20 ML VIAL IV ONE (10:40)
[2021-09-28] MEDS ORDERED: fentaNYL (PF) 50 MCG/ML 2 ML AMP ONE (10:40)
[2021-09-28] MEDS ORDERED: MIDAZOLAM 2 MG/2 ML VIAL ONE (10:40)
[2021-09-28] MEDS ORDERED: LIDOCAINE 1% INJ 10MG/ML (20 ML MDV) ONE (10:40)
[2021-09-28] MEDS ORDERED: SUCCINYLCHOLINE CHLORIDE 100 MG/5 ML SYR IV ONE (10:40)
[2021-09-28] MEDS ORDERED: NEOSTIGMINE 1 MG/ML 10 ML VIAL ONE (10:40)
[2021-09-28] MEDS ORDERED: GLYCOPYRROLATE 0.2 MG/ML 2 ML VIAL ONE (10:40)
[2021-09-28] MEDS ORDERED: ROCURONIUM 10 MG/ML (5 ML VIAL) IV ONE (10:40)
[2021-09-28] MEDS ORDERED: KETOROLAC 15 MG/ML 1 ML VIAL ONE (10:40)
[2021-09-28] MEDS ORDERED: BUPIVACAINE (PF) 0.25% 30 ML VIAL SQ ONE ×2 (10:51→11:04)
[2021-09-28] MEDS ORDERED: LACTATED RINGERS 1,000 ML IV ONE (11:20)
--- NOTE | 2021-09-28 11:28 | P.OP ---
Date of Procedure: 09/28/21 Preoperative Diagnosis: Cholecystitis Postoperative Diagnosis: Cholecystitis Procedure(s) Performed: Laparoscopic cholecystectomy Anesthesia: PRO Surgeon: Tadeo Moreira Estimated Blood Loss (ml): 5 Pathology: other (Gallbladder) Condition: stable Disposition: PACU Description of Procedure: The patient was placed on the operating table. The patient received a general endotracheal tube anesthesia. The patients abdomen was prepped and draped in the usual sterile fashion. Through an infraumbilical stab incision, the fascia of the anterior abdominal wall was grasped with a pair of Kochers and then the Veress needle was placed in the peritoneal cavity. Position of the Veress needle was confirmed with positive drop test. The abdomen was then insufflated. After adequate insufflation, the 10 mm trocar was placed in the peritoneal cavity. Following this the laparoscope was placed in the peritoneal cavity. The patient was placed in the head-up, right side up position and then a 5 mm trocar was placed in the right lateral and right subcostal position under direct visualization. A 8 mm trocar was placed in the epigastric position. The gallbladder was grasped in the fundus and infundibulum. Traction on the gallbladder was placed in the lateral and the cephalad positions. The triangle of [place] was visualized.. The cystic duct was bluntly dissected until the union of the cystic duct and common bile duct was seen. A critical view of safety was achieved. The cystic duct was then divided and sealed with the Harmonic scissors. A PDS Endoloop was then placed throughout the cystic duct stump. The cystic artery divided and sealed with the Harmonic scissors. The gallbladder was then removed from the liver bed using Harmonic scissors. The gallbladder was then extracted through the epigastric port site. Operative field was checked for any bleeding spots and Harmonic scissors was used to coagulate the liver bed. The abdomen was irrigated. The trocars were removed. The skin was closed using interrupted 3-0 Vicryl suture. Dermabond dressing were applied. The patient tolerated the procedure well.
[2021-09-28] MEDS ORDERED: HYDROcodone/APAP 7.5-325MG 1 EACH TAB PO PRN (11:29)
[2021-09-28 14:39] VITALS: TEMP 97.6
[2021-09-28 14:42] VITALS: RESP 16
[2021-09-28 14:56] VITALS: BMI 32.1
[2021-09-28 15:54] VITALS: BP 103/55; PULSE 108
[2021-09-29] MEDS ORDERED: ENOXAPARIN 40 MG/0.4 ML SYRINGE SQ SCH (09:00)
== END 2021-09-28 17:05 ==
LOC: EC 12:29 → 6PED 18:36
PROVIDERS: ADMIT Surgery; ATTEND Surgery
DX: K80.64 Calculus of gallbladder and bile duct with chronic cholecystitis without obstruction (principal); J45.909 Unspecified asthma, uncomplicated; K21.9 Gastro-esophageal reflux disease without esophagitis; R74.01 Elevation of levels of liver transaminase levels; Z20.822 Contact with and (suspected) exposure to COVID-19; Z79.899 Other long term (current) drug therapy; Z83.79 Family history of other diseases of the digestive system
CPT/HCPCS: 47562; 96360; 99285; 36415; 81025 ×2; 88304; 80053; 83690; 85025; 81001; 87635; 76705; G0378 ×2; J2250; J1100; J2710; J0690; J2405; J2001; J3010; J1885; J0330; J2704; J1790; J1644

== ENCOUNTER 2023-03-31 19:44 | Outpatient (CLI) | payer OTHER ==
[2023-03-31 20:50] VITALS: BP 121/69; PULSE 93; RESP 16; TEMP 97.3
--- NOTE | 2023-04-01 11:35 | P.MSEPDOC ---
Presenting Problems - Arrival Data Date of Arrival on Unit: 03/31/23 Time of Arrival on Unit: 19:44 Mode of Transport: Ambulatory - Complaint OB-Reason for Admission/Chief Complaint: Rule Out SROM Comment: Patient present to triage with complaint of leaking clear fluid. 0/10 pain, no contractions felt per patient. Medical History - Information : 2 Para: 1 Term: 1 : 0 Abortions: Spontaneous or Elective: 0 Number of Living Children: 1 - Gestational Age Gestational Age by MARY BETH (wks/days): 38 Weeks and 4 Days Review of Systems - Review of Systems Constitutional: No problems Breast: No problems ENT: No problems Cardiovascular: No problems Respiratory: No problems Gastrointestinal: No problems Genitourinary: No problems Musculoskeletal: No problems Neurological: No problems Skin: No problems Vital Signs - Temperature Temperature: 97.3 F Temperature Source: Temporal Artery Scan - Pulse Pulse Oximetery Pulse Rate: 93 Pulse Assessment Method: Pulse Oximetry - Respirations Respiratory Rate: 16 Oxygen Delivery Method: Room Air O2 Sat by Pulse Oximetry: 100 - Blood Pressure Right Arm Blood Pressure: 121/69 Blood Pressure Mean: 86 Blood Pressure Source: Automatic Cuff Medical Screen Scoring - Cervical Exam Membranes: Intact - Assessment - Baby A Baseline FHR: 140 Heart Rate - NICHD Category: Category I (Normal) NST: Reactive Physician Notification - Physician Notified Physician Notified Date: 03/31/23 Physician Notified Time: 20:29 Physician: Claude Ricks Order Received: Yes (Orders to discharge home) - Notification Comment Comment: Orders to discharge home with instructions and to return for IOL 04/04/2023, or if SROM occurs. Maternal Triage Index - Maternal Triage Index Presenting for scheduled procedure w/no complaint: No - Stat/Priority 1 Stat Priority 1: No - Urgent/Priority 2 Urgent Priority 2: No - Prompt/Priority 3 Prompt Priority 3: No - Non-Urgent/Priority 4 Non-Urgent Priority 4: Yes Criteria Met for Priority 4: Dr. Ricks called, Rn reported on Maternal and status, reactive NST,. vital signs stable, no contractions felt per patient or traced per TOCO. Amnisure. completed and negative result reported. Orders to discharge patient home. Disposition - Disposition OB Disposition: Discharge to home Discharge Date: 03/31/23 Discharge Time: 20:29 I agree with the RN Medical Screening Exam: Yes Physician's MSE Comment: I have neither seen nor examined the patient. Case reviewed; plan agreed upon as documented in EMR&OBIX.: Yes Diagnosis: RELATED CONDITIONS, UNSPECIFIED, THIRD TRIMESTER
== END 2023-03-31 20:29 | disposition home or self-care (01) ==
LOC: FBPOP 19:44
PROVIDERS: ATTEND Obstetrics & Gynecology
DX: O47.1 False labor at or after 37 completed weeks of gestation (principal); Z3A.38 38 weeks gestation of pregnancy
CPT/HCPCS: 59025; 84112; G0463; 99213

== ENCOUNTER 2023-04-04 06:00 | Inpatient (IN) | payer OTHER ==
[2023-04-04] MEDS ORDERED: CARBOPROST TROMETHAMINE 250 MCG/ML 1 ML AMP IM PRN (07:04)
[2023-04-04] MEDS ORDERED: TERBUTALINE 1 MG/ML VIAL SQ PRN (07:04)
[2023-04-04] MEDS ORDERED: miSOPROStoL 200 MCG TAB PO PRN (07:04)
[2023-04-04] MEDS ORDERED: METHYLERGONOVINE 0.2 MG/ML 1 ML AMP IM PRN (07:04)
[2023-04-04] MEDS ORDERED: LIDOCAINE 0.5% (PF) 5 MG/ML (50 ML SDV) SQ PRN (07:04)
[2023-04-04] MEDS ORDERED: TRANEXAMIC ACID IN NACL,ISO-OS 1,000 MG in EMPTY BAG 1 BAG IV PRN (07:04)
[2023-04-04] MEDS ORDERED: OXYTOCIN 10 UNIT/ML 1 ML VIAL IM PRN (07:04)
[2023-04-04 07:25] LABS: Basophils % (A) 0 %; Eosinophils % (A) 1 %; HCT 33.7 % (34.0-46.0); HGB 10.9 gm/dL (11.4-16.0); Lymphocytes # (A) 1.6 k/uL (1.0-4.8); Lymphocytes % (A) 22 %; MCH 24.8 pg (25.0-35.0); MCHC 32.3 g/dL (31.0-37.0); MCV 76.8 fL (80.0-100.0); Mean Platelet Volume 9.7; Monocytes # (A) 0.4 k/uL (0-1.0); Monocytes % (A) 6 %; Neutrophils % (A) 69 %; Platelet Count 309 k/uL (150-450); RBC 4.38 m/uL (3.80-5.40); RDW 15.2 % (11.5-15.5); WBC 7.2 k/uL (3.8-10.6)
--- NOTE | 2023-04-04 07:31 | P.HPOB ---
History of Present Illness H&P Date: 04/04/23 Chief Complaint: Elective induction of labor Ms. Horn is a 27 year old at 39 weeks and 5 days with EDC of 04/10/23 by LMP consistent with 7 week ultrasound who presents to labor and delivery for an elective induction of labor. Her has been complicated by a history of HSV. Her last outbreak was years ago. She has been on valcyclovir prophylaxis since 36 weeks. Obstetric history: 1 full term vaginal delivery, uncomplicated Maternal Serologies: blood type O positive, antibody negative, rubella immune, VDRL non-reactive, HBsAg negative, HIV negative, 1 hour GTT 90, GBS negative Past Medical History Past Medical History: Asthma History of Any Multi-Drug Resistant Organisms: None Reported Past Surgical History: No Surgical Hx Reported Additional Past Surgical History / Comment(s): Nexplan removal Past Anesthesia/Blood Transfusion Reactions: No Reported Reaction Smoking Status: Former smoker - Past Family History Mother Additional Family Medical History / Comment(s): CHOLECYSTITIS AND CHOLECYSTECTOMY Father Family Medical History: No Reported History Medications and Allergies Home Medications Medication Instructions Recorded Confirmed Type Acyclovir 500 mg PO BID 03/31/23 03/31/23 History Allergies Allergy/AdvReac Type Severity Reaction Status Date / Time No Known Allergies Allergy Verified 04/04/23 07:04 Exam Intake and Output 04/03/23 04/04/23 04/04/23 22:59 06:59 14:59 Other: Weight 87.09 kg Focused physical exam is performed. This is a healthy appearing in no apparent distress. Abdomen is gravid, nontender. Cervix is 2/50/-3. No lesions noted one exam. AROM is undertaken for clear fluid. Extremities non-edematous, non-tender. heart tones reactive and reassuring. Results Result Diagrams: 04/04/23 06:50 Assessment and Plan Assessment: 27 year old at 39 weeks and 1 day here for eIOL Plan: Admit, oxytocin per protocol, NPO, mIVF, epidural prn, continuous EFM, close monitoring of patient
[2023-04-04] MEDS: LACTATED RINGERS 1,000 ML IV SCH ×2 (09:32→09:42)
[2023-04-04] MEDS: OXYTOCIN 30 UNITS/500 ML NS 30 UNIT in SALINE 1 500ML.BAG IV SCH ×2 (09:32→14:20)
[2023-04-04] MEDS ORDERED: fentaNYL (PF) 50 MCG/ML 5 ML AMP ONE (09:48)
[2023-04-04] MEDS ORDERED: ROPIVACAINE 5 MG/ML 20 ML AMPULE ONE (09:48)
[2023-04-04] MEDS ORDERED: SODIUM CHLORIDE 0.9% 100 ML BAG ONE (09:48)
--- NOTE | 2023-04-04 14:17 | P.PROBDLV ---
Vaginal Delivery Note - . Vaginal Delivery Note: DATE OF SERVICE: 04/04/2023 PROCEDURE: Vaginal Delivery ATTENDING: Dr. Mary Jackson MD ESTIMATED BLOOD LOSS: 500 mL FINDINGS: VFI, weight 6#4 ounces, Apgars 9/9 PROCEDURE: Patient was a 27 y/o at 39 weeks and 1 day who presented to labor and delivery for elective induction of labor. Pitocin was started per protocol. AROM was undertaken for clear fluid. The patient received epidural anesthesia per her request. She quickly progressed to complete dilation. She pushed effectively. Head delivered without difficulty followed by shoulders and body over intact perineum. Infant placed on maternal abdomen and bulb suctioned. Cord was clamped and cut after a 30 second delay. Placenta delivered whole with gentle cord traction. Oxytocin was started to facilitate uterine tone. The uterus was boggy and atonic. Bleeding was heavier than expected, so IM Methergine was given. After administration of Methergin and bimanual massage, the uterine fundus was firm and bleeding minimal upon fundal massage. Perineal inspection revealed periurethral abrasions that did not require repair and an intact perineum. Patient stable .
[2023-04-04] MEDS ORDERED: diphenhydrAMINE 25 MG CAP PO PRN (14:18)
[2023-04-04] MEDS ORDERED: SIMETHICONE 80 MG CHEWABLE PO PRN (14:18)
[2023-04-04] MEDS ORDERED: LANOLIN CREAM 5 GM TUBE TOPICAL PRN (14:18)
[2023-04-04] MEDS ORDERED: ZOLPIDEM 5 MG TAB PO PRN (14:18)
[2023-04-04] MEDS ORDERED: diphenhydrAMINE 50 MG CAP PO PRN (14:18)
[2023-04-04] MEDS ORDERED: BENZOCAINE/MENTHOL SPRAY 1 GM/SPRAY AEROSOL TOPICAL PRN (14:18)
[2023-04-04] MEDS ORDERED: HYDROCORTISONE 2.5% RECTAL CREAM 30 GM TUBE RECTAL PRN (14:18)
[2023-04-04] MEDS ORDERED: diphenhydrAMINE 50 MG/ML 1 ML VIAL IVP PRN ×2 (14:18)
[2023-04-04] MEDS ORDERED: OXYTOCIN 30 UNITS/500 ML NS 30 UNIT in SALINE 1 500ML.BAG IV SCH (14:30)
[2023-04-04] MEDS: SENNOSIDES-DOCUSATE SODIUM 1 EACH TAB PO SCH (20:19)
[2023-04-04] MEDS: IBUPROFEN 600 MG TAB PO PRN (21:57)
[2023-04-05] MEDS: ACETAMINOPHEN TAB 325 MG TAB PO PRN ×2 (00:08→06:20)
[2023-04-05] MEDS: LACTATED RINGERS 1,000 ML IV SCH (00:57)
[2023-04-05] MEDS: IBUPROFEN 600 MG TAB PO PRN (04:18)
[2023-04-05 06:48] LABS: Basophils % (A) 0 %; Eosinophils % (A) 1 %; HCT 31.6 % (34.0-46.0); HGB 10.4 gm/dL (11.4-16.0); Lymphocytes % (A) 22 %; MCHC 32.9 g/dL (31.0-37.0); Monocytes % (A) 5 %; Neutrophils % (A) 71 %; Platelet Count 273 k/uL (150-450); RDW 15.3 % (11.5-15.5); WBC 8.3 k/uL (3.8-10.6)
[2023-04-05 06:49] LABS: Lymphocytes # (A) 1.8 k/uL (1.0-4.8); Monocytes # (A) 0.4 k/uL (0-1.0); Neutrophils # (A) 5.9 k/uL (1.3-7.7)
--- NOTE | 2023-04-05 07:16 | P.PNOBGVD ---
Subjective - Subjective Principal diagnosis: s/p vaginal delivery Interval history: The patient is doing well this morning and had no acute events overnight. She has no complaints this morning. She reports minimal lochia, passing flatus, voiding without difficulty, ambulating, and eating/drinking without nausea or vomiting. She is bottle her infant without difficulty. She denies chest pain, shortness of breathing, fevers, or chills overnight. She denies pain or swelling in the legs. Patient reports: Reports appetite normal, Reports voiding normally, Reports pain well controlled, Reports ambulating normally : doing well Objective - Latest Vital Signs Latest vital signs: Vital Signs Temp Pulse Pulse Resp BP Pulse Ox 04/05/23 04:00 97.8 F 90 16 107/75 98 04/05/23 00:00 98.6 F 86 18 121/82 96 04/04/23 20:00 98.3 F 79 18 128/81 95 04/04/23 16:00 97.4 F L 78 18 118/66 97 04/04/23 15:45 98.0 F 91 18 118/66 04/04/23 15:15 98.3 F 78 18 129/65 04/04/23 15:00 97.5 F L 78 18 123/74 04/04/23 14:45 97 136/80 04/04/23 14:30 98.6 F 94 18 115/65 04/04/23 14:15 98.7 F 107 H 18 128/57 Intake and Output 04/04/23 04/05/23 04/05/23 22:59 06:59 14:59 Intake Total 540 Output Total 150 Balance -150 540 Intake: Oral 540 Output: Output, Quantitative 150 Blood Loss Other: # Voids 1 1 - Exam Extremities: Present: normal Abdomen: Present: normal appearance, soft Uterus: Present: normal, firm - Labs Labs: Abnormal Lab Results - Last 24 Hours (Table) 04/04/23 04/05/23 Range/Units 06:50 : Hgb 10.9 L 10.4 L (11.4-16.0) gm/dL Hct 33.7 L 31.6 L (34.0-46.0) % MCV 76.8 L 79.0 L (80.0-100.0) fL MCH 24.8 L (25.0-35.0) pg Assessment and Plan Assessment: 27 year old PPD#1 s/p vaginal delivery complicated by uterine atony without hemorrhage Plan: Patient meeting all milestones. Will discharge home today.
--- NOTE | 2023-04-05 07:20 | P.DS ---
Providers Date of admission: 04/04/23 06:42 Expected date of discharge: 04/05/23 Attending physician: Mary Jackson MD Primary care physician: Stated None Hospital Course: This is a 27 year old now PPD#1 s/p vaginal delivery complicated by uterine atony without hemorrhage, treated with oxytocin and methergine. The patient is doing well this morning and had no acute events overnight. She has no complaints this morning. She reports minimal lochia, passing flatus, voiding without difficulty, ambulating, and eating/drinking without nausea or vomiting. Infant doing well at bedside. She denies chest pain, shortness of breathing, fevers, or chills overnight. She denies pain or swelling in the legs. restrictions are reviewed with the patient including pelvic rest for 6 weeks. The patient is encouraged to call the office if she experiences any heavy bleeding, foul-smelling discharge, breast complaints, or any if she has any other concerns. She will follow up in the office in 6 weeks for exam. All questions are answered. Assessment: 27 year old now PPD#1 s/p vaginal delivery complicated by uterine atony without hemorrhage Patient Condition at Discharge: Good Plan - Discharge Summary Discharge Rx Participant: No New Discharge Prescriptions: No Action Vit No.179/Iron/Folic [ Tablet] 1 each PO DAILY Acyclovir 500 mg PO BID Ferrous Sulfate [Iron] 325 mg PO DAILY Discharge Medication List Acyclovir 500 mg PO BID 03/31/23 [History] Ferrous Sulfate [Iron] 325 mg PO DAILY 04/04/23 [History] Vit No.179/Iron/Folic [ Tablet] 1 each PO DAILY 04/04/23 [History] Follow up Appointment(s)/Referral(s): Mary Jackson MD [STAFF PHYSICIAN] - 6 Weeks Patient Instructions/Handouts: Depression (DC), Bleeding (DC), Perineal Care (DC) Discharge Disposition: HOME SELF-CARE
[2023-04-05 08:13] VITALS: BP 109/73; PULSE 76; RESP 15; TEMP 98.5
[2023-04-05] MEDS: SENNOSIDES-DOCUSATE SODIUM 1 EACH TAB PO SCH (08:13)
== END 2023-04-05 15:00 | disposition home or self-care (01) | DRG 560 ==
LOC: 4FBP 06:42
PROVIDERS: ADMIT Obstetrics & Gynecology; ATTEND Obstetrics & Gynecology
PROC: 3E033VJ Introduction of Other Hormone into Peripheral Vein, Percutaneous Approach (ICD-10-PCS; principal; 2023-04-04)
PROC: 10E0XZZ Delivery of Products of Conception, External Approach (ICD-10-PCS; 2023-04-04)
PROC: 10907ZC Drainage of Amniotic Fluid, Therapeutic from Products of Conception, Via Natural or Artificial Opening (ICD-10-PCS; 2023-04-04)
DX: O99.52 Diseases of the respiratory system complicating childbirth (principal); O75.89 Other specified complications of labor and delivery; J45.909 Unspecified asthma, uncomplicated; Z37.0 Single live birth; Z3A.39 39 weeks gestation of pregnancy; Z87.891 Personal history of nicotine dependence
CPT/HCPCS: 85025; 86850; 86900; 86901